=== PATIENT | male | born 1965 | race Caucasian/White ===

== ENCOUNTER 2016-10-05 00:09 | Inpatient (IN) | payer MEDICAID ==
[~2016-10-05 00:09] MED LIST: ADOXA100 MG; ADULT ASPIRIN81 MG PO; ADVIL200 MG; ALDACTONE100 M1; ALDACTONE100 MG PO; ALDACTONE50 M1 PO; AMOXICILLIN500 MG PO; AUGMENTIN 875-11 TAB; AUGMENTIN875 MG PO; AUGMENTIN875 MG/TA1 PO; BACTRIM DS TAB1 EAC2 PO; BACTRIM DS TABL1 TAB; BACTRIM DS TABL1 TAB PO; BACTRIM DS1 TA1 PO; DOXYCYCLINE HY100 M3; ENTERIC COATED325 M; HYDROCODON-ACE1 EA17 PO; KEFLEX500 M1 PO; KEFLEX500 MG PO; KLONOPIN0.5 MG PO; LASIX40 M1 PO; LASIX40 MG PO; LYRICA50 MG/CAP PO; MOTRIN400 MG; NORCO 10-325 T1 EACH PO; NORCO 10/3251 TAB PO; NORCO 5-325 TA1 EACH PO; NORCO 5/325 TAB1 TAB PO; NORCO 5/3251 TAB PO; OXYCODONE PO; PERCOCET 5/3251 TAB PO; PLAVIX75 MG; PROTONIX40 MG PO; SILVADENE20 G1 TP; XEROFORM PETRO1 EACH TP
[2016-10-05] MEDS ORDERED: NO HOME MEDICATION XX (01:07)
[2016-10-05 01:08] LABS: BASO % 0.1 % (0-2); EOS % 0.1 % (0-7); HCT-HEMATOCRIT 30.3 % (36.0-53.5); HGB-HEMOGLOBIN 11.1 gm/dl (13.5-17.0); IMMATURE GRANULOCYTES ABSOLUTE 0.04 tho/cmm (0-0.03); IMMATURE GRANULOCYTES PERCENT 0.3 % (0-0.3); LYMPH % 3.5 % (20-45); LYMPH ABSOLUTE COUNT 0.5 tho/cmm (0.8-4.5); MCH (MEAN CORPUSCULAR HGB) 33.4 pg (28.0-32.0); MCV (MEAN CELL VOLUME) 91.3 fl (82.0-96.0); MEAN PLATELET VOLUME 9.1 cmc (9.4-12.4); MONO % 6.1 % (0-12); NEUTROPHILS % 89.9 % (40-80); PLATELET COUNT 207 tho/cmm (150-450); RED BLOOD COUNT 3.32 mil/cmm (4.40-5.70); RED CELL DISTRIBUTION WIDTH 14.5 % (12.4-16.4); WHITE BLOOD COUNT 15.6 tho/cmm (4.0-10.0)
[2016-10-05 01:11] LABS: MCHC MEAN CORPUSCULAR HGB CONC 36.6 % (32.0-36.0)
[2016-10-05 01:15] LABS: INR 1.3 INR (0.9-1.1); PROTHROMBIN TIME 15.3 SECONDS (9.0-13.6)
[2016-10-05 01:24] LABS: ALB/GLOB RATIO 0.6 (0.8-2.0); ALBUMIN 2.4 g/dl (3.5-5.0); ALKALINE PHOSPHATASE 193 U/L (33-138); ALT/SGPT 65 U/L (12-78); ANION GAP 15 mmol/L (0-20); AST/SGOT 140 U/L (10-40); BILIRUBIN,TOTAL 1.5 mg/dl (0.0-1.5); BLOOD UREA NITROGEN 14 mg/dl (6-24); C-REACTIVE PROTEIN 14.2 mg/dl (0-0.9); CALCIUM 7.5 mg/dl (8.5-10.5); CARBON DIOXIDE-VENOUS 19 mmol/L (22-32); CHLORIDE 95 mmol/l (96-110); GLUCOSE 157 mg/dL (70-110); POTASSIUM 3.8 mmol/L (3.7-5.1); SODIUM 125 mmol/L (135-145); eGFR VALUE FOR BLACK >90 mL/Min
[2016-10-05 01:42] LABS: PROCALCITONIN 0.84 ng/ml (0.05-0.09)
[2016-10-05 02:19] LABS: URINE BILIRUBIN SMALL (NEG); URINE BLOOD LARGE (NEG); URINE GLUCOSE (UA) NEGATIVE (NEG); URINE KETONE NEGATIVE (NEG); URINE LEUKOCYTE ESTERASE POSITIVE (NEG); URINE NITRITE NEGATIVE (NEG); URINE PROTEIN MODERATE (NEG); URINE SPECIFIC GRAVITY 1.015 (1.003-1.030)
[2016-10-05 02:21] LABS: URINE APPEARANCE CLEAR; URINE COLOR BROWN
[2016-10-05 02:35] LABS: URINE EPITHELIAL CELLS 0-5 /[HPF] (0-10)
[2016-10-05] MEDS ORDERED: ULTRAM50 M1 PO (03:37)
[2016-10-05] MEDS ORDERED: LASIX20 M1 PO (03:38)
[2016-10-05] MEDS ORDERED: LASIX80 M1 PO (10:56)
[2016-10-05] MEDS ORDERED: VIBRAMYCIN100 M1 PO (10:56)
[2016-10-05] MEDS ORDERED: ALDACTONE50 M1 PO (10:57)
[2016-10-05] MEDS ORDERED: AMBIEN10 M1 PO (10:57)
[2016-10-05] MEDS ORDERED: BENZOYL PEROXIDE TOP (11:02)
[2016-10-05] MEDS ORDERED: PENTOXIFYLLINE ER PO (11:05)
[2016-10-06 04:35] LABS: BASO % 0.1 % (0-2); EOS % 3.4 % (0-7); EOSINOPHIL ABSOLUTE COUNT 0.4 tho/cmm (0.0-0.7); HCT-HEMATOCRIT 31.1 % (36.0-53.5); HGB-HEMOGLOBIN 10.9 gm/dl (13.5-17.0); IMMATURE GRANULOCYTES ABSOLUTE 0.03 tho/cmm (0-0.03); IMMATURE GRANULOCYTES PERCENT 0.3 % (0-0.3); LYMPH % 5.2 % (20-45); LYMPH ABSOLUTE COUNT 0.5 tho/cmm (0.8-4.5); MCH (MEAN CORPUSCULAR HGB) 32.8 pg (28.0-32.0); MCV (MEAN CELL VOLUME) 93.7 fl (82.0-96.0); MEAN PLATELET VOLUME 8.8 cmc (9.4-12.4); MONO % 7.4 % (0-12); MONOCYTE ABSOLUTE COUNT 0.8 tho/cmm (0.0-1.2); NEUTROPHIL ABSOLUTE COUNT 8.7 tho/cmm (1.6-8.0); NEUTROPHIL-AUTOMATED 8.7 tho/cmm (1.6-8.0); NEUTROPHILS % 83.6 % (40-80); PLATELET COUNT 156 tho/cmm (150-450); RED BLOOD COUNT 3.32 mil/cmm (4.40-5.70); RED CELL DISTRIBUTION WIDTH 15.1 % (12.4-16.4); WHITE BLOOD COUNT 10.4 tho/cmm (4.0-10.0)
[2016-10-06 04:42] LABS: ANION GAP 12 mmol/L (0-20); BLOOD UREA NITROGEN 11 mg/dl (6-24); CALCIUM 7.2 mg/dl (8.5-10.5); CARBON DIOXIDE-VENOUS 25 mmol/L (22-32); CHLORIDE 96 mmol/l (96-110); CREATININE 0.85 mg/dl (0.60-1.30); GLUCOSE 121 mg/dL (70-110); POTASSIUM 3.6 mmol/L (3.7-5.1); SODIUM 129 mmol/L (135-145); eGFR VALUE FOR BLACK >90 mL/Min
[2016-10-07 05:20] LABS: BASO % 0.2 % (0-2); EOS % 5.7 % (0-7); EOSINOPHIL ABSOLUTE COUNT 0.3 tho/cmm (0.0-0.7); HCT-HEMATOCRIT 31.4 % (36.0-53.5); HGB-HEMOGLOBIN 10.8 gm/dl (13.5-17.0); IMMATURE GRANULOCYTES ABSOLUTE 0.01 tho/cmm (0-0.03); IMMATURE GRANULOCYTES PERCENT 0.2 % (0-0.3); LYMPH % 7.3 % (20-45); LYMPH ABSOLUTE COUNT 0.4 tho/cmm (0.8-4.5); MCHC MEAN CORPUSCULAR HGB CONC 34.4 % (32.0-36.0); MEAN PLATELET VOLUME 9.3 cmc (9.4-12.4); MONO % 8.8 % (0-12); MONOCYTE ABSOLUTE COUNT 0.5 tho/cmm (0.0-1.2); NEUTROPHIL ABSOLUTE COUNT 4.7 tho/cmm (1.6-8.0); NEUTROPHIL-AUTOMATED 4.7 tho/cmm (1.6-8.0); NEUTROPHILS % 77.8 % (40-80); PLATELET COUNT 146 tho/cmm (150-450); RED BLOOD COUNT 3.27 mil/cmm (4.40-5.70); RED CELL DISTRIBUTION WIDTH 15.1 % (12.4-16.4)
[2016-10-07 05:29] LABS: ALB/GLOB RATIO 0.5 (0.8-2.0); ALKALINE PHOSPHATASE 211 U/L (33-138); ALT/SGPT 58 U/L (12-78); ANION GAP 11 mmol/L (0-20); AST/SGOT 81 U/L (10-40); BILIRUBIN,TOTAL 0.9 mg/dl (0.0-1.5); BLOOD UREA NITROGEN 7 mg/dl (6-24); CALCIUM 7.3 mg/dl (8.5-10.5); CARBON DIOXIDE-VENOUS 25 mmol/L (22-32); CHLORIDE 102 mmol/l (96-110); CREATININE 0.66 mg/dl (0.60-1.30); GLUCOSE 107 mg/dL (70-110); SODIUM 134 mmol/L (135-145); eGFR VALUE FOR BLACK >90 mL/Min
[2016-10-07 06:16] LABS: ESR-ERYTHROCYTE SED RATE 79 mm/hr (0-20)
[2016-10-08 06:27] LABS: BASO % 0.4 % (0-2); EOS % 7.5 % (0-7); EOSINOPHIL ABSOLUTE COUNT 0.3 tho/cmm (0.0-0.7); HCT-HEMATOCRIT 32.4 % (36.0-53.5); IMMATURE GRANULOCYTES ABSOLUTE 0.01 tho/cmm (0-0.03); IMMATURE GRANULOCYTES PERCENT 0.2 % (0-0.3); LYMPH ABSOLUTE COUNT 0.3 tho/cmm (0.8-4.5); MCH (MEAN CORPUSCULAR HGB) 33.1 pg (28.0-32.0); MCV (MEAN CELL VOLUME) 97.6 fl (82.0-96.0); MEAN PLATELET VOLUME 9.1 cmc (9.4-12.4); MONOCYTE ABSOLUTE COUNT 0.5 tho/cmm (0.0-1.2); NEUTROPHIL ABSOLUTE COUNT 3.4 tho/cmm (1.6-8.0); NEUTROPHIL-AUTOMATED 3.4 tho/cmm (1.6-8.0); NEUTROPHILS % 73.9 % (40-80); PLATELET COUNT 134 tho/cmm (150-450); RED BLOOD COUNT 3.32 mil/cmm (4.40-5.70); RED CELL DISTRIBUTION WIDTH 15.2 % (12.4-16.4); WHITE BLOOD COUNT 4.5 tho/cmm (4.0-10.0)
[2016-10-08 06:54] LABS: ANION GAP 10 mmol/L (0-20); BLOOD UREA NITROGEN 6 mg/dl (6-24); CALCIUM 7.5 mg/dl (8.5-10.5); CARBON DIOXIDE-VENOUS 26 mmol/L (22-32); CHLORIDE 104 mmol/l (96-110); GLUCOSE 108 mg/dL (70-110); SODIUM 135 mmol/L (135-145); eGFR VALUE FOR BLACK >90 mL/Min
[2016-10-08 06:55] LABS: POTASSIUM 4.9 mmol/L (3.7-5.1)
[2016-10-08 07:37] LABS: ESR-ERYTHROCYTE SED RATE 53 mm/hr (0-20)
[2016-10-09 06:11] LABS: BASO % 0.2 % (0-2); EOS % 7.8 % (0-7); EOSINOPHIL ABSOLUTE COUNT 0.4 tho/cmm (0.0-0.7); HCT-HEMATOCRIT 33.8 % (36.0-53.5); HGB-HEMOGLOBIN 11.5 gm/dl (13.5-17.0); IMMATURE GRANULOCYTES ABSOLUTE 0.01 tho/cmm (0-0.03); IMMATURE GRANULOCYTES PERCENT 0.2 % (0-0.3); LYMPH % 8.7 % (20-45); LYMPH ABSOLUTE COUNT 0.4 tho/cmm (0.8-4.5); MCH (MEAN CORPUSCULAR HGB) 33.1 pg (28.0-32.0); MCV (MEAN CELL VOLUME) 97.4 fl (82.0-96.0); MEAN PLATELET VOLUME 9.2 cmc (9.4-12.4); MONO % 10.4 % (0-12); MONOCYTE ABSOLUTE COUNT 0.5 tho/cmm (0.0-1.2); NEUTROPHIL ABSOLUTE COUNT 3.3 tho/cmm (1.6-8.0); NEUTROPHIL-AUTOMATED 3.3 tho/cmm (1.6-8.0); NEUTROPHILS % 72.7 % (40-80); PLATELET COUNT 116 tho/cmm (150-450); RED BLOOD COUNT 3.47 mil/cmm (4.40-5.70); WHITE BLOOD COUNT 4.5 tho/cmm (4.0-10.0)
[2016-10-09 06:25] LABS: ANION GAP 10 mmol/L (0-20); BLOOD UREA NITROGEN 5 mg/dl (6-24); C-REACTIVE PROTEIN 5.7 mg/dl (0-0.9); CALCIUM 8.2 mg/dl (8.5-10.5); CARBON DIOXIDE-VENOUS 27 mmol/L (22-32); CHLORIDE 104 mmol/l (96-110); CREATININE 0.57 mg/dl (0.60-1.30); GLUCOSE 112 mg/dL (70-110); POTASSIUM 4.1 mmol/L (3.7-5.1); SODIUM 137 mmol/L (135-145); eGFR VALUE FOR BLACK >90 mL/Min
[2016-10-09 08:47] LABS: ESR-ERYTHROCYTE SED RATE 75 mm/hr (0-20)
[2016-10-10 05:31] LABS: BASO % 0.2 % (0-2); EOS % 5.8 % (0-7); EOSINOPHIL ABSOLUTE COUNT 0.3 tho/cmm (0.0-0.7); HCT-HEMATOCRIT 34.4 % (36.0-53.5); HGB-HEMOGLOBIN 11.5 gm/dl (13.5-17.0); LYMPH % 7.5 % (20-45); LYMPH ABSOLUTE COUNT 0.3 tho/cmm (0.8-4.5); MCH (MEAN CORPUSCULAR HGB) 32.3 pg (28.0-32.0); MCHC MEAN CORPUSCULAR HGB CONC 33.4 % (32.0-36.0); MCV (MEAN CELL VOLUME) 96.6 fl (82.0-96.0); MEAN PLATELET VOLUME 9.2 cmc (9.4-12.4); MONO % 8.4 % (0-12); MONOCYTE ABSOLUTE COUNT 0.4 tho/cmm (0.0-1.2); NEUTROPHIL ABSOLUTE COUNT 3.3 tho/cmm (1.6-8.0); NEUTROPHIL-AUTOMATED 3.3 tho/cmm (1.6-8.0); NEUTROPHILS % 78.1 % (40-80); PLATELET COUNT 123 tho/cmm (150-450); RED BLOOD COUNT 3.56 mil/cmm (4.40-5.70); RED CELL DISTRIBUTION WIDTH 14.7 % (12.4-16.4); WHITE BLOOD COUNT 4.3 tho/cmm (4.0-10.0)
[2016-10-10 06:14] LABS: ESR-ERYTHROCYTE SED RATE 65 mm/hr (0-20)
[2016-10-11 04:11] LABS: BASO % 0.5 % (0-2); EOS % 10.5 % (0-7); EOSINOPHIL ABSOLUTE COUNT 0.4 tho/cmm (0.0-0.7); HCT-HEMATOCRIT 34.4 % (36.0-53.5); HGB-HEMOGLOBIN 11.5 gm/dl (13.5-17.0); IMMATURE GRANULOCYTES ABSOLUTE 0.01 tho/cmm (0-0.03); IMMATURE GRANULOCYTES PERCENT 0.3 % (0-0.3); LYMPH ABSOLUTE COUNT 0.4 tho/cmm (0.8-4.5); MCH (MEAN CORPUSCULAR HGB) 32.7 pg (28.0-32.0); MCHC MEAN CORPUSCULAR HGB CONC 33.4 % (32.0-36.0); MCV (MEAN CELL VOLUME) 97.7 fl (82.0-96.0); MEAN PLATELET VOLUME 9.2 cmc (9.4-12.4); MONO % 10.5 % (0-12); MONOCYTE ABSOLUTE COUNT 0.4 tho/cmm (0.0-1.2); NEUTROPHIL ABSOLUTE COUNT 2.6 tho/cmm (1.6-8.0); NEUTROPHIL-AUTOMATED 2.6 tho/cmm (1.6-8.0); NEUTROPHILS % 68.2 % (40-80); PLATELET COUNT 114 tho/cmm (150-450); RED BLOOD COUNT 3.52 mil/cmm (4.40-5.70); RED CELL DISTRIBUTION WIDTH 14.9 % (12.4-16.4); WHITE BLOOD COUNT 3.8 tho/cmm (4.0-10.0)
[2016-10-11 06:08] LABS: ESR-ERYTHROCYTE SED RATE 49 mm/hr (0-20)
[2016-10-12 02:18] LABS: BASO % 0.6 % (0-2); EOS % 8.2 % (0-7); EOSINOPHIL ABSOLUTE COUNT 0.3 tho/cmm (0.0-0.7); HCT-HEMATOCRIT 33.7 % (36.0-53.5); HGB-HEMOGLOBIN 11.4 gm/dl (13.5-17.0); LYMPH % 11.2 % (20-45); LYMPH ABSOLUTE COUNT 0.4 tho/cmm (0.8-4.5); MCH (MEAN CORPUSCULAR HGB) 32.9 pg (28.0-32.0); MCHC MEAN CORPUSCULAR HGB CONC 33.8 % (32.0-36.0); MCV (MEAN CELL VOLUME) 97.4 fl (82.0-96.0); MEAN PLATELET VOLUME 9.5 cmc (9.4-12.4); MONO % 9.7 % (0-12); MONOCYTE ABSOLUTE COUNT 0.3 tho/cmm (0.0-1.2); NEUTROPHIL ABSOLUTE COUNT 2.3 tho/cmm (1.6-8.0); NEUTROPHIL-AUTOMATED 2.3 tho/cmm (1.6-8.0); NEUTROPHILS % 70.3 % (40-80); PLATELET COUNT 103 tho/cmm (150-450); RED BLOOD COUNT 3.46 mil/cmm (4.40-5.70); RED CELL DISTRIBUTION WIDTH 14.6 % (12.4-16.4); WHITE BLOOD COUNT 3.3 tho/cmm (4.0-10.0)
[2016-10-12 03:28] LABS: ESR-ERYTHROCYTE SED RATE 50 mm/hr (0-20)
[2016-10-13 05:28] LABS: BASO % 1.1 % (0-2); EOS % 8.5 % (0-7); EOSINOPHIL ABSOLUTE COUNT 0.3 tho/cmm (0.0-0.7); HCT-HEMATOCRIT 36.8 % (36.0-53.5); HGB-HEMOGLOBIN 12.5 gm/dl (13.5-17.0); LYMPH % 12.9 % (20-45); LYMPH ABSOLUTE COUNT 0.5 tho/cmm (0.8-4.5); MCH (MEAN CORPUSCULAR HGB) 32.9 pg (28.0-32.0); MCV (MEAN CELL VOLUME) 96.8 fl (82.0-96.0); MEAN PLATELET VOLUME 9.7 cmc (9.4-12.4); MONO % 12.4 % (0-12); MONOCYTE ABSOLUTE COUNT 0.5 tho/cmm (0.0-1.2); NEUTROPHIL ABSOLUTE COUNT 2.4 tho/cmm (1.6-8.0); NEUTROPHIL-AUTOMATED 2.4 tho/cmm (1.6-8.0); NEUTROPHILS % 65.1 % (40-80); PLATELET COUNT 119 tho/cmm (150-450); RED CELL DISTRIBUTION WIDTH 14.7 % (12.4-16.4); WHITE BLOOD COUNT 3.6 tho/cmm (4.0-10.0)
[2016-10-13 06:05] LABS: CHLORIDE 101 mmol/l (96-110); POTASSIUM 4.2 mmol/L (3.7-5.1); SODIUM 136 mmol/L (135-145)
[2016-10-13 06:08] LABS: ESR-ERYTHROCYTE SED RATE 44 mm/hr (0-20)
[2016-10-13 06:09] LABS: ANION GAP 11 mmol/L (0-20); BLOOD UREA NITROGEN 11 mg/dl (6-24); C-REACTIVE PROTEIN 2.3 mg/dl (0-0.9); CARBON DIOXIDE-VENOUS 28 mmol/L (22-32); CREATININE 0.64 mg/dl (0.60-1.30); GLUCOSE 121 mg/dL (70-110); eGFR VALUE FOR BLACK >90 mL/Min
[2016-10-13] MEDS ORDERED: NYSTATIN1 EA10 TP (11:07)
[2016-10-13] MEDS ORDERED: CEFTRIAXON2000 MG/VI IV (11:09)
[2016-10-13] MEDS ORDERED: PENTOXIFYLLINE400 M2 PO (11:13)
[2016-10-13] MEDS ORDERED: BACITRACIN28.4 G2 TP (11:15)
[2016-10-13] MEDS ORDERED: OXYCONTIN10 M2 PO (15:15)
== END 2016-10-13 15:30 | DRG 872 ==
LOC: EDMED 00:09 → EMR2 04:00 → 5WF 05:00 → 5WE 10-13 07:32
PROVIDERS: Family Medicine; Internal Medicine; ADMIT Hospitalist
PROC: 02HV33Z Insertion of Infusion Device into Superior Vena Cava, Percutaneous Approach (ICD-10-PCS; principal; 2016-10-09)
DX: A41.51 Sepsis due to Escherichia coli [E. coli] (principal); E87.1 Hypo-osmolality and hyponatremia; K70.9 Alcoholic liver disease, unspecified; J44.9 Chronic obstructive pulmonary disease, unspecified; F17.210 Nicotine dependence, cigarettes, uncomplicated; F41.9 Anxiety disorder, unspecified; F32.9 Major depressive disorder, single episode, unspecified; I73.9 Peripheral vascular disease, unspecified; N43.2 Other hydrocele; I10 Essential (primary) hypertension; L98.499 Non-pressure chronic ulcer of skin of other sites with unspecified severity; E87.6 Hypokalemia; D64.9 Anemia, unspecified; I87.2 Venous insufficiency (chronic) (peripheral); Z86.14 Personal history of Methicillin resistant Staphylococcus aureus infection; Z95.5 Presence of coronary angioplasty implant and graft
CPT/HCPCS: A9577; C1751; G0009; G0480; J0696; J1170; J1650; J1815; J2270; J2405; J2543; J3370; J7030; J7050

== ENCOUNTER 2016-10-18 11:56 | Emergency (ER) | payer MEDICAID ==
[~2016-10-18 11:56] MED LIST changes: +AMBIEN10 M1 PO; +BACITRACIN28.4 G2 TP; +BENZOYL PEROXIDE TOP; +CEFTRIAXON2000 MG/VI IV; +LASIX20 M1 PO; +LASIX80 M1 PO; +NO HOME MEDICATION XX; +NYSTATIN1 EA10 TP; +OXYCONTIN10 M2 PO; +PENTOXIFYLLINE ER PO; +PENTOXIFYLLINE400 M2 PO; +ULTRAM50 M1 PO; +VIBRAMYCIN100 M1 PO
[2016-10-18] MEDS ORDERED: ULTRAM50 M1 PO (13:37)
[2016-10-18] MEDS ORDERED: ROXICODONE5 M2 PO (13:37)
== END 2016-10-18 13:49 ==
LOC: EDMED 11:56
DX: L03.116 Cellulitis of left lower limb (principal); Z76.0 Encounter for issue of repeat prescription; Z88.6 Allergy status to analgesic agent; F17.200 Nicotine dependence, unspecified, uncomplicated
CPT/HCPCS: J1170